=== PATIENT | male | born 1955 | race Caucasian/White ===

== ENCOUNTER 2023-04-08 22:42 | Emergency (ER) | payer SELFPAY ==
[~2023-04-08] VITALS: Ht 180.3 cm; Wt 78.0 kg
[2023-04-08 22:52] VITALS: BP 111/68
[2023-04-08] MEDS ORDERED: SULF1TAB48 MT (23:55)
[2023-04-08] MEDS ORDERED: CEPH500C2 MT (23:55)
[2023-04-09] MEDS ORDERED: CEPHALEXIN 250MG CAPSULE PO ONE
[2023-04-09] MEDS ORDERED: SULFAMETHOXAZOLE/TRIMETHOPRIM 800/160MG TABLET PO ONE
[2023-04-09] MEDS ORDERED: TETANUS, DIPHTHERIA, PERTUSSIS VAC/PF 0.5ML (>10YR OLD) IM ONE
== END 2023-04-09 00:43 | disposition home or self-care (01) ==
LOC: ER 04-09
DX: L03.114 Cellulitis of left upper limb (principal); F32.9 Major depressive disorder, single episode, unspecified; K21.9 Gastro-esophageal reflux disease without esophagitis; E78.00 Pure hypercholesterolemia, unspecified
CPT/HCPCS: 73130; 90471; 90715; 99283